=== PATIENT | female | born 1940 | race Caucasian/White ===

== ENCOUNTER → 2016-11-21 | Outpatient (CLI) | payer MEDICARE ==
[~2016-11-21] MED LIST: ADDERALL20 M1 PO; ALENDRONATE PO; ATORVASTATIN PO; CALCIUM + D 6001 TA1 PO; MULTI-DAY VITAM1 TAB PO; VITAMIN D PO
--- NOTE | ~2016-11-21 | MR18 ---
[facility] A Service [facility] RADIOLOGY TEXT RESULTS PATIENT: CASSIA ARAYA LOCATION: [facility] : 40 UNIT #: [id number] AGE: [address]: LEIGHANN HUIZAR NP SEX: F ORDER DR: [id number] [facility] [address] [place], [place] [address] [id number] O MR#: [id number] Acc #: [id number] NAME: CASSIA ARAYA : 1940 SEX: F STUDY DATE/TIME: 11/21/2016 16:22 UNIT: [facility] ROOM: STUDY DESCRIPTION: MR Brain Wo Contrast Attending Physician: Leighann Huizar Aprn Referring Physician: Leighann Huizar Aprn Ordering Physician: Physician Non-Staff Primary Care Physician: Primary Care Physician No MRI CENTER REPORT This report is preliminary unless electronic signature is present. EXAM MRI of the brain without contrast dated 11/21/16 COMPARISON: CT head without contrast dated 05/09/16 HISTORY Memory loss for 3 to 5 years. Brain feels foggy. FINDINGS Multisequence multiplanar imaging of the brain was obtained without contrast. No acute stroke, space occupying intracranial mass, mass effect, midline shift or hydrocephalus. Multiple hyperintense T2 signal lesions are noted in the subcortical white matter, periventricular white matter, bilateral external/extreme capsule and adjacent basal ganglia. Vascular flow voids of the major cerebral arteries and dural venous sinuses are not obstructed in these thicker slices. Status post bilateral cataract surgery. Imaged orbits with the ocular structures and mastoids are unremarkable. Nasal septum is deviated to the right. There is minimal paranasal sinus mucosal thickening. IMPRESSION 1. No acute intracranial abnormality. 2. 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 Old lacunar infarcts are in the differential consideration. Nonspecific. 3. No acute intracranial abnormal or space occupying mass. Dictated by... Karla Denis M.D. [facility] A Service [facility] RADIOLOGY TEXT RESULTS PATIENT: CASSIA ARAYA [facility] UNIT #: [id number] AGE: [address]: LEIGHANN HUIZAR NP SEX: F ORDER DR: THIS IS AN ELECTRONICALLY VERIFIED REPORT Karla Denis M.D. at 11/22/2016 3:34 PM CPR/cmm TD: 11/22/2016 13:52 JOB #: [id number] MRI CENTER REPORT COPY
== END | disposition home or self-care (01) ==
LOC: CMRI 15:54
DX: R41.3 Other amnesia (principal); R90.89 Other abnormal findings on diagnostic imaging of central nervous system
CPT/HCPCS: 70551